=== PATIENT | male | born 1985 | race Caucasian/White ===

== ENCOUNTER 2020-01-19 15:19 | Emergency (ER) | payer SELFPAY ==
[~2020-01-19] VITALS: Ht 172.7 cm; Wt 84.5 kg
[2020-01-19 15:29] VITALS: BP 141/84
== END 2020-01-19 15:59 | disposition home or self-care (01) ==
LOC: ED 15:56
DX: G89.29 Other chronic pain (principal); M79.662 Pain in left lower leg; K62.5 Hemorrhage of anus and rectum
CPT/HCPCS: 99282

== ENCOUNTER 2020-02-02 15:25 | Emergency (ER) | payer MEDICAID ==
[~2020-02-02] VITALS: Ht 172.7 cm; Wt 90.9 kg
--- NOTE | 2020-02-02 16:11 | NUR ---
PROVIDER AT BEDSIDE
--- NOTE | 2020-02-02 16:22 | NUR ---
PT C/O DIARRHEA, COUGH, NASAL CONGESTION, AND SOB SINCE THIS AM. PT DENIES FEVER OR CHEST PAIN. PT DOES NOT KNOW OF ANY KNOWN CONTACT WITH A PERSON WITH COVID 19. PT STATES HE HAS BEEN EXPERIENCING SOME JOINT PAIN FOR THE LAST WEEK.
[2020-02-02] MEDS ORDERED: SODIUM CHLORIDE 0.9% 1,000ML IVBOLUS ONE (16:30)
[2020-02-02] MEDS ORDERED: METOCLOPRAMIDE 5 MG/ML, 2ML IVPush ONE (16:30)
[2020-02-02] MEDS ORDERED: KETOROLAC 30 MG/1 ML IVPush ONE (16:30)
[2020-02-02] MEDS ORDERED: KETOROLAC 30 MG/1 ML ONE (16:49)
[2020-02-02] MEDS ORDERED: METOCLOPRAMIDE 5 MG/ML, 2ML ONE (16:49)
[2020-02-02 17:56] VITALS: BP 111/70
--- NOTE | 2020-02-02 18:05 | NUR ---
PT REC'VD DISCHARGE INSTRUCTIONS AND EDUCATION. PT HAD NO FURTHER QUESTIONS. PT AMBULATED TO DISCHARGE AREA, STEADY GAIT.
== END 2020-02-02 18:07 | disposition home or self-care (01) ==
LOC: ED 16:51
DX: B34.9 Viral infection, unspecified (principal); Z20.828 Contact with and (suspected) exposure to other viral communicable diseases; R05 Cough; R50.9 Fever, unspecified; R11.2 Nausea with vomiting, unspecified; R00.0 Tachycardia, unspecified; M79.10 Myalgia, unspecified site; F17.210 Nicotine dependence, cigarettes, uncomplicated
CPT/HCPCS: 36415; 71045; 87635; 93005; 96361; 96374; 96375; 99285; J1885; J2765; J7030

== ENCOUNTER 2020-02-24 09:02 | Emergency (ER) | payer MEDICAID ==
[~2020-02-24] VITALS: Ht 172.7 cm; Wt 95.5 kg
[2020-02-24 09:04] VITALS: BP 163/84
[2020-02-24] MEDS ORDERED: HYDROcodone/APAP 5/325 TABLET ONE (09:46)
[2020-02-24] MEDS ORDERED: SODIUM CHLORIDE FLUSH 10ML SYR IVF ONE (10:00)
[2020-02-24] MEDS ORDERED: HYDROcodone/APAP 5/325 TABLET PO ONE (10:00)
[2020-02-24 10:21] LABS: BASOPHILS % (AUTO) 1 % (0-1); EOSINOPHILS % (AUTO) 4 % (1-7); LYMPHOCYTES % (AUTO) 33 % (22-44); MEAN CORPUSCULAR HEMOGLOBIN 27.4 pg (27.5-34.5); MEAN CORPUSCULAR HGB CONC 32.6 g/dL (33.2-36.2); MEAN PLATELET VOLUME 8.8 fL (7.4-10.4); MONOCYTES % (AUTO) 13 % (2-9); NEUTROPHILS % (AUTO) 49 % (42-75); PLATELET COUNT 320 x10^3/uL (130-400); RED BLOOD COUNT 4.58 x10^6/uL (4.38-5.82); RED CELL DISTRIBUTION WIDTH 14.9 % (9.4-14.8)
--- NOTE | 2020-02-24 10:24 | NUR ---
PIV INITIATED, PT MEDICATION PER JUN. PT TO GO TO MRI. NO OTHER NEEDS
[2020-02-24 10:28] LABS: MD NO
[2020-02-24 10:37] LABS: ALANINE AMINOTRANSFERASE 61 U/L (12-78); ALKALINE PHOSPHATASE 87 U/L (45-117); ANION GAP 5 mmol/L (5-15); BILIRUBIN,TOTAL 0.5 mg/dL (0.2-1.0); CALCIUM 8.7 mg/dL (8.5-10.1); CHLORIDE 110 mmol/L (98-107); CREATININE 0.87 mg/dL (0.7-1.3)
[2020-02-24 10:38] LABS: ALBUMIN 3.5 g/dL (3.4-5.0); TOTAL PROTEIN 7.4 g/dL (6.4-8.2)
[2020-02-24] MEDS ORDERED: GADOTERATE 10 MMOL/20 ML SYR ONE (10:56)
== END 2020-02-24 12:33 | disposition home or self-care (01) ==
LOC: ED 10:08
DX: M25.572 Pain in left ankle and joints of left foot (principal); M79.89 Other specified soft tissue disorders; Z76.0 Encounter for issue of repeat prescription
CPT/HCPCS: 36415; 73723; 80053; 85025; 99285; A9575

== ENCOUNTER 2020-06-03 22:50 | Emergency (ER) | payer MEDICAID ==
[~2020-06-03] VITALS: Ht 172.7 cm; Wt 94.6 kg
[2020-06-03 22:54] VITALS: BP 125/75
[2020-06-03] MEDS ORDERED: LIDOCAINE-MPF 1%, 5ML ONE (23:15)
--- NOTE | 2020-06-03 23:21 | NUR ---
Pt to ER with abscess to inner thigh. I&D kit to bedside. Pt A&O. Warm blanket given.
[2020-06-03] MEDS ORDERED: LIDOCAINE-MPF 1%, 5ML INFIL ONE (23:30)
--- NOTE | 2020-06-04 00:05 | NUR ---
Pt area dressed with bandaid. Supplies sent home with patient. Pt instructed to f/u in 48hrs. Pt dc'd with written and verbal instructions. Pt ambulatory out of ED with all belongings.
== END 2020-06-04 00:10 | disposition home or self-care (01) ==
LOC: ED 06-04
DX: L02.416 Cutaneous abscess of left lower limb (principal); F17.210 Nicotine dependence, cigarettes, uncomplicated
CPT/HCPCS: 10060; 99282; 99406

== ENCOUNTER 2020-07-01 12:34 | Emergency (ER) | payer MEDICAID ==
[~2020-07-01] VITALS: Ht 172.7 cm; Wt 87.0 kg
[2020-07-01 14:33] LABS: BASOPHILS % (AUTO) 0 % (0-1); EOSINOPHILS % (AUTO) 1 % (1-7); LYMPHOCYTES % (AUTO) 16 % (22-44); MEAN CORPUSCULAR HEMOGLOBIN 25.7 pg (27.5-34.5); MEAN CORPUSCULAR HGB CONC 32.5 g/dL (33.2-36.2); MEAN PLATELET VOLUME 8.9 fL (7.4-10.4); MONOCYTES % (AUTO) 11 % (2-9); NEUTROPHILS % (AUTO) 71 % (42-75); PLATELET COUNT 291 x10^3/uL (130-400); RED BLOOD COUNT 4.54 x10^6/uL (4.38-5.82); RED CELL DISTRIBUTION WIDTH 20.8 % (9.4-14.8)
[2020-07-01 14:34] LABS: MD NO
[2020-07-01 14:37] LABS: ALBUMIN 3.7 g/dL (3.4-5.0); ANION GAP 8 mmol/L (5-15); CALCIUM 8.3 mg/dL (8.5-10.1); CHLORIDE 99 mmol/L (98-107); CREATININE 0.99 mg/dL (0.7-1.3)
--- NOTE | 2020-07-01 14:50 | NUR ---
PEDIATRIC OPHTHALMOLOGIST: PT TO ROOM FROM LOBBY VIA W/C
[2020-07-01] MEDS ORDERED: IBUPROFEN 200 MG TABLET PO ONE (15:30)
[2020-07-01 16:41] VITALS: BP 126/63
== END 2020-07-01 16:44 | disposition home or self-care (01) ==
LOC: ED 15:02
DX: L03.115 Cellulitis of right lower limb (principal); M79.89 Other specified soft tissue disorders
CPT/HCPCS: 36415; 80048; 82040; 84550; 85025; 99284

== ENCOUNTER 2020-07-27 03:20 | Emergency (ER) | payer MEDICAID ==
[~2020-07-27] VITALS: Ht 172.7 cm; Wt 63.8 kg
[2020-07-27 03:23] VITALS: BP 142/85
== END 2020-07-27 04:34 | disposition home or self-care (01) ==
LOC: ED 03:36
DX: J00 Acute nasopharyngitis [common cold] (principal); J01.00 Acute maxillary sinusitis, unspecified; F17.200 Nicotine dependence, unspecified, uncomplicated
CPT/HCPCS: 99283